=== PATIENT | female | born 1980 | race Caucasian/White ===

== ENCOUNTER 2021-04-04 06:54 | Emergency (ER) | payer BC ==
[2021-04-04 07:07] VITALS: BMI 27.1
[2021-04-04] MEDS ORDERED: ASPIRIN 81 MG CHEWABLE TABLETS PO ONE (07:48)
[2021-04-04] MEDS ORDERED: ASPIRIN 81 MG CHEWABLE TABLETS ONE (08:00)
[2021-04-04 08:37] LABS: BASO % 1.1 % (0-2.0); EOS % 0.8 % (0-4.5); HEMATOCRIT 42.5 % (32.4-45.2); HEMOGLOBIN 14.6 GM/dL (10.7-15.3); MCH 31.6 pg (25.7-33.7); MCHC 34.3 g/dl (32.0-36.0); MEAN CELL VOLUME 92.1 fl (80-96); MONO % 5.5 % (3.8-10.2); NEUT % 61.6 % (42.8-82.8); PLATELET COUNT 296 K/MM3 (134-434); RBC 4.61 M/mm3 (3.60-5.2); WHITE BLOOD COUNT 8.2 K/mm3 (4.0-10.0)
[2021-04-04 08:50] LABS: CHLORIDE 108 mmol/L (98-107); SODIUM 140 mmol/L (136-145)
[2021-04-04 08:52] LABS: CALCIUM 8.8 mg/dL (8.5-10.1)
[2021-04-04 08:53] LABS: ALBUMIN 3.7 g/dl (3.4-5.0); ANION GAP 4 MMOL/L (8-16); BLOOD UREA NITROGEN 11.2 mg/dL (7-18); CO2 28 mmol/L (21-32); GLUCOSE,RANDOM 85 mg/dL (74-106)
[2021-04-04 08:56] LABS: CREATININE 0.7 mg/dL (0.55-1.3); SGOT/AST 11 U/L (15-37); SGPT/ALT 17 U/L (13-61)
[2021-04-04 08:58] LABS: BILIRUBIN,TOTAL 0.5 mg/dL (0.2-1); TOT PROT 6.9 g/dl (6.4-8.2)
[2021-04-04 08:59] LABS: ALK PHOS 75 U/L (45-117)
[2021-04-04] MEDS ORDERED: ACETAMINOPHEN 500 MG TABLET (FP) PO ONE (09:39)
[2021-04-04] MEDS ORDERED: ACETAMINOPHEN 325 MG TABLET (FP) ONE (09:58)
[2021-04-04 10:05] LABS: N-TERMINAL BNP 69.1 pg/ml (5-125)
[2021-04-04 15:09] VITALS: BP 114/60; PULSE 69; TEMP 98.1
== END 2021-04-04 15:00 | disposition left against medical advice (07) ==
LOC: JER 06:54
DX: R07.89 Other chest pain (principal)
CPT/HCPCS: 36415; 71045-TC-FY; 80053; 82550; 83880; 84484; 84703; 85025; 93005; 93010; 99284-25

== ENCOUNTER 2021-04-08 11:27 | Emergency (ER) | payer BC ==
[2021-04-08 11:44] VITALS: TEMP 98; BMI 27.9
[2021-04-08 12:55] LABS: BASO % 1.1 % (0-2.0); EOS % 1.3 % (0-4.5); HEMATOCRIT 41.4 % (32.4-45.2); HEMOGLOBIN 13.8 GM/dL (10.7-15.3); LYMPH % 39.2 % (8-40); MCH 30.9 pg (25.7-33.7); MCHC 33.4 g/dl (32.0-36.0); MEAN CELL VOLUME 92.3 fl (80-96); MEAN PLT VOLUME 6.9 fl (7.5-11.1); MONO % 6.2 % (3.8-10.2); NEUT % 52.2 % (42.8-82.8); PLATELET COUNT 293 10^3/uL (134-434); RBC 4.48 M/mm3 (3.60-5.2); RDW 13.1 % (11.6-15.6); WHITE BLOOD COUNT 7.3 K/mm3 (4.0-10.0)
[2021-04-08 13:08] LABS: CHLORIDE 110 mmol/L (98-107); SODIUM 142 mmol/L (136-145)
[2021-04-08 13:10] LABS: ANION GAP 5 MMOL/L (8-16); BLOOD UREA NITROGEN 14.8 mg/dL (7-18); CO2 27 mmol/L (21-32); GLUCOSE,RANDOM 85 mg/dL (74-106)
[2021-04-08 13:13] LABS: CREATININE 0.7 mg/dL (0.55-1.3)
[2021-04-08 15:38] VITALS: BP 120/64; PULSE 73
== END 2021-04-08 15:37 | disposition home or self-care (01) ==
LOC: JER 11:27
DX: R07.9 Chest pain, unspecified (principal)
CPT/HCPCS: 36415; 71046-TC-FY; 80048; 82550; 84443; 84484; 84703; 85025; 93005; 93010; 99285-25